=== PATIENT | female | born 1985 | race Asian ===

== ENCOUNTER 2019-07-10 10:51 | Emergency (ER) | payer OTHER, SELFPAY ==
[2019-07-10 10:57] VITALS: BP 121/82; PULSE 67; RESP 15; TEMP 36.8; O2SAT 99; BMI 21.4
--- NOTE | 2019-07-10 11:42 | ED_ITS ---
HPI - Extremity Problem <PHYLICIA Streeter - Last Filed: 07/10/19 20:29> General Chief complaint: Extremity Problem,Nontraumatic Stated complaint: RT ARM NUMB/COMES AND GOES Time Seen by Provider: 07/10/19 11:22 Source: patient Mode of arrival: ambulatory Limitations: no limitations History of Present Illness HPI Narrative: The patient is a 33-year-old female nonsmoker who denies perti nent medical history who presents with a chief complaint of transient right arm pins and needles. She states that has happened in both of her arms on and off since yesterday. She denies any numbness comes states her arm is tingly. She moves her hand, squeezes her hand and eventually goes away. Then it goes away. She states it is worse when she holds a phone in her right hand. She denies any fevers nausea vomiting or diarrhea. She denies any possibility of . She has not taken anything since this started. Related Data Home Medications Medication Instructions Recorded Confirmed No Known Home Medications 07/10/19 07/10/19 Allergies Allergy/AdvReac Type Severity Reaction Status Date / Time No Known Drug Allergies Allergy Verified 07/10/19 10:57 Review of Systems [facility] Last Filed: 07/10/19 20:29> Review of Systems GENERAL: Denies chills, fatigue, malaise, fever, sweats. HEENT: Denies sinus pain, ear pain, sore throat, difficulty swallowing, dizziness. RESPIRATORY: Denies dyspnea, cough, wheezing, hemoptysis, sputum. CARDIOVASCULAR: Denies chest pain, palpitations, orthopnea, edema, GASTROINTESTINAL: Denies nausea, vomiting, abdominal pain, diarrhea, constipation, melena. : Denies dysuria, frequency, incontinence, hematuria, urinary retention. MUSCULOSKELETAL: See HPI SKIN: Denies rash, skin lesions, or other NEUROLOGIC: See HPI PSYCHIATRIC: No concerning psychosocial issues. 12 point review of systems is negative except for those stated above Exam <PHYLICIA Streeter - Last Filed: 07/10/19 20:29> Narrative Exam Narrative: GENERAL: This is a well-nourished, well-developed patient, in mild distress. HEAD: Atraumatic. Normocephalic. No temporal or scalp tenderness. EYES: Pupils equal round and reactive. Extraocular motions intact. No scleral icterus. No injection or drainage. ENT: Nose without bleeding, purulent drainage or septal hematoma. Throat without erythema, tonsillar hypertrophy or exudate. Uvula midline. Airway patent. NECK: Trachea midline. No JVD or lymphadenopathy. Supple, nontender, no men ingeal signs. CARDIOVASCULAR: Regular rate and rhythm without murmurs, gallops, or rubs. RESPIRATORY: Clear to auscultation. Breath sounds equal bilaterally. No wheezes, rales, or rhonchi. GASTROINTESTINAL: Abdomen soft, non-tender, nondistended. No hepato- splenomegaly, or palpable masses. No guarding. EXTREMITIES: Strength is equal upper and lower extremities bilaterally. Sensation of sharp versus dull is intact bilateral upper extremities times 20 evaluations of sharp versus dull. Patient has full range of motion noted bilateral shoulders elbows wrists. Positive radial pulses. Capillary refill less than 2 seconds all fingers. BACK: Nontender without deformity or crepitance. No flank tenderness. NEURO: AOx3. SKIN: No rash or erythema. No rash erythema or ecchymosis noted over bilateral upper arms. Initial Vital Signs Initial Vital Signs: Vital Signs Temperature 98.2 F 07/10/19 10:57 Pulse Rate 67 07/10/19 10:57 Respiratory Rate 15 07/10/19 10:57 Blood Pressure 121/82 07/10/19 10:57 Pulse Oximetry 99 07/10/19 10:57 <Carmelina Aragon DO - Last Filed: 07/11/19 21:16> Initial Vital Signs Initial Vital Signs: Vital Signs Temperature 98.2 F 07/10/19 10:57 Pulse Rate 67 07/10/19 10:57 Respiratory Rate 15 07/10/19 10:57 Blood Pressure 121/82 07/10/19 10:57 Pulse Oximetry 99 07/10/19 10:57 Course <JUNIOR Streeter - Last Filed: 07/10/19 20:29> Orders Ordered: Discontinued Medications Ketorolac Tromethamine (Toradol) 60 mg IM NOW ONE Stop: 07/10/19 11:41 Last Admin: 07/10/19 12:06 Dose: 60 mg Vital Signs - 8 hr 07/10/19 13:21 Pulse Rate 60 Respiratory Rate 16 Blood Pressure [Right Arm] 105/64 Pulse Oximetry 99 <Carmelina Aragon DO - Last Filed: 07/11/19 21:16> Orders Ordered: Discontinued Medications Ketorolac Tromethamine (Toradol) 60 mg IM NOW ONE Stop: 07/10/19 11:41 Last Admin: 07/10/19 12:06 Dose: 60 mg Vital Signs - 8 hr 07/10/19 13:21 Pulse Rate 60 Respiratory Rate 16 Blood Pressure [Right Arm] 105/64 Pulse Oximetry 99 MDM - Extremity (Nontraumatic) <PHYLICIA Streeter - Last Filed: 07/10/19 20:29> Lab Data Result diagrams: 07/10/19 12:20 07/10/19 12:20 Lab Results 07/10/19 07/10/19 07/10/19 Range/Units 12:20 12:20 12:45 WBC 4.7 (4.5-11.0) X10^3/uL RBC 4.20 (4.0-5.2) X10^6/uL Hgb 12.0 (12.0-16.0) g/dL Hct 37.0 (36-46) % MCV 88.2 (80-100) fL MCH 28.5 (26-34) PG MCHC 32.3 (30-36) % RDW 15.3 H (11.6-14.8) % Plt Count 258 (150-400) X10^3/uL Neut % (Auto) 46.8 L (50-75) % Lymph % (Auto) 38.0 (25-40) % Barton % (Auto) 11.9 (3-14) % Eos % (Auto) 1.8 L (2-4) % Baso % (Auto) 1.5 (0-2) % Neut # (Auto) 2200 (4458-0378) /uL Lymph # (Auto) 1800 (8287-5179) /uL Barton # (Auto) 600 (0-900) /uL Eos # (Auto) 100 (0-450) /uL Baso # (Auto) 100 (0-100) /uL Sodium 140 (137-145) mmol/L Potassium 4.1 (3.4-5.1) mmol/L Chloride 104 (98-107) mmol/L Carbon Dioxide 28 (22-32) mmol/L BUN 5 L (7-17) mg/dL Creatinine 0.50 L (0.52-1.04) mg/dL Estimated GFR > 60.0 (>60) mL/min BUN/Creatinine Ratio 10.0 (6-22) Glucose 87 (70-100) mg/dL Calcium 8.9 (8.4-10.2) mg/dL Magnesium 2.0 (1.6-2.3) mg/dL Total Bilirubin 0.7 (0.2-1.3) mg/dL AST 24 (14-36) IU/L ALT 13 (9-52) IU/L Alkaline Phosphatase 46 (38-126) U/L Total Protein 7.3 (6.3-8.2) g/dL Albumin 4.4 (3.5-5.0) g/dL Globulin 2.9 (1.7-4.1) g/dL Albumin/Globulin Ratio 1.5 (1.0-2.8) Urine RBC 30-100/hpf H (0-5/HPF) Urine WBC 0-1/hpf (0-5/HPF) Ur Squamous Epith Cells 0-1 /hpf (0-5/HPF) Urine Bacteria None seen (None) Ur Culture Indicated? Cult not indicated Point of Care Testing Test Results Negative Urine Dip Bedside Urine Glucose Negative Bedside Urine Bilirubin - Negative Bedside Urine Ketone - Negative Urine Specific [place] 1.010 Bedside Urine Occult Blood +++ Bedside Urine pH 8.0 Bedside Urine Protein +/- 15 Bedside Urine Urobilinogen - Negative Bedside Urine Nitrite - Negative Bedside Urine Leukocytes +/- 15 Esterase MDM Narrative Medical decision making narrative: The patient is a 33-year-old female who presents with a chief complaint of transient tingling in both arms, predominately her right arm. Her sensation is intact. This was testing copiously with sharp versus dull. All of her electrolytes are within normal limits. I believe this is likely due to her increased workload lately moving, reaching overhead etc. She was given Toradol in the emergency department I discussed at length conservative measures as well as rest. Could also be a prodrome of shingles. Discussed coming back to the ER for any acute concerns such as concerns of heart attack or stroke. No questions or concerns upon discharge. States understanding of follow-up as well as return precautions. <Carmelina Aragon, DO - Last Filed: 07/11/19 21:16> Lab Data Lab Results 07/10/19 07/10/19 07/10/19 Range/Units 12:20 12:20 12:45 WBC 4.7 (4.5-11.0) X10^3/uL RBC 4.20 (4.0-5.2) X10^6/uL Hgb 12.0 (12.0-16.0) g/dL Hct 37.0 (36-46) % MCV 88.2 (80-100) fL MCH 28.5 (26-34) PG MCHC 32.3 (30-36) % RDW 15.3 H (11.6-14.8) % Plt Count 258 (150-400) X10^3/uL Neut % (Auto) 46.8 L (50-75) % Lymph % (Auto) 38.0 (25-40) % Barton % (Auto) 11.9 (3-14) % Eos % (Auto) 1.8 L (2-4) % Baso % (Auto) 1.5 (0-2) % Neut # (Auto) 2200 (1913-7578) /uL Lymph # (Auto) 1800 (7810-3568) /uL Barton # (Auto) 600 (0-900) /uL Eos # (Auto) 100 (0-450) /uL Baso # (Auto) 100 (0-100) /uL Sodium 140 (137-145) mmol/L Potassium 4.1 (3.4-5.1) mmol/L Chloride 104 (98-107) mmol/L Carbon Dioxide 28 (22-32) mmol/L BUN 5 L (7-17) mg/dL Creatinine 0.50 L (0.52-1.04) mg/dL Estimated GFR > 60.0 (>60) mL/min BUN/Creatinine Ratio 10.0 (6-22) Glucose 87 (70-100) mg/dL Calcium 8.9 (8.4-10.2) mg/dL Magnesium 2.0 (1.6-2.3) mg/dL Total Bilirubin 0.7 (0.2-1.3) mg/dL AST 24 (14-36) IU/L ALT 13 (9-52) IU/L Alkaline Phosphatase 46 (38-126) U/L Total Protein 7.3 (6.3-8.2) g/dL Albumin 4.4 (3.5-5.0) g/dL Globulin 2.9 (1.7-4.1) g/dL Albumin/Globulin Ratio 1.5 (1.0-2.8) Urine RBC 30-100/hpf H (0-5/HPF) Urine WBC 0-1/hpf (0-5/HPF) Ur Squamous Epith Cells 0-1 /hpf (0-5/HPF) Urine Bacteria None seen (None) Ur Culture Indicated? Cult not indicated Point of Care Testing Test Results Negative Urine Dip Bedside Urine Glucose Negative Bedside Urine Bilirubin - Negative Bedside Urine Ketone - Negative Urine Specific [place] 1.010 Bedside Urine Occult Blood +++ Bedside Urine pH 8.0 Bedside Urine Protein +/- 15 Bedside Urine Urobilinogen - Negative Bedside Urine Nitrite - Negative Bedside Urine Leukocytes +/- 15 Esterase Discharge Plan Departure Patient Disposition: Home Clinical Impression: Tingling Discharge Date/Time: 07/10/19 14:05 Interventions: ED Discharge Assessment Last Done: 07/10/19 14:04 Instructions: DI for Numbness/tingling Activity Restrictions/Additional Instructions: I suggest conservative measures at this point including rest [id number] medications as needed and able. Please come back to the emergency department for any acute concerns such as concern of heart attack or stroke. Please follow up with your PCP. In the meantime, our walk-in clinic will do follow-up for emergency department patient. Prescriptions: No Action No Known Home Medications RF: 0 <Carmelina Aragon DO - Last Filed: 07/11/19 21:16> Cosign ED Attending [place] Attestation: I was immediately available in the department for consultation. Documentation has been reviewed. I agree with ass essment and plan.
[2019-07-10] MEDS: KETOROLAC 60 MG/2 ML VIAL IM (12:06)
[2019-07-10 12:31] LABS: Add Manual Diff / Slide Review NO; Basophils Absolute Auto 100 /uL (0-100); Basophils Percent Auto 1.5 % (0-2); Eosinophils Absolute Auto 100 /uL (0-450); Eosinophils Percent Auto 1.8 % (2-4); Lymphocytes Absolute Auto 1800 /uL (1100-4500); Mean Corpuscular HGB Conc 32.3 % (30-36); Mean Corpuscular Hemoglobin 28.5 PG (26-34); Mean Corpuscular Volume 88.2 fL (80-100); Monocytes Absolute Auto 600 /uL (0-900); Monocytes Percent Auto 11.9 % (3-14); Neutrophils Absolute Auto 2200 /uL (1500-7000); Neutrophils Percent Auto 46.8 % (50-75); Platelet Count 258 X10^3/uL (150-400); Red Cell Distribution Width 15.3 % (11.6-14.8); White Blood Cell Count 4.7 X10^3/uL (4.5-11.0)
[2019-07-10 12:42] LABS: Alanine Aminotransferase 13 IU/L (9-52); Albumin 4.4 g/dL (3.5-5.0); Albumin Globulin Ratio 1.5 (1.0-2.8); Alkaline Phosphatase 46 U/L (38-126); Aspartate Aminotransferase 24 IU/L (14-36); Bilirubin Total 0.7 mg/dL (0.2-1.3); Blood Urea Nitrogen 5 mg/dL (7-17); Calcium 8.9 mg/dL (8.4-10.2); Carbon Dioxide 28 mmol/L (22-32); Chloride 104 mmol/L (98-107); Estimated Glomerular Filt Rate > 60.0 mL/min (>60); Globulin 2.9 g/dL (1.7-4.1); Glucose 87 mg/dL (70-100); HEMOLYSIS < 15 (0-50); Potassium 4.1 mmol/L (3.4-5.1); Sodium 140 mmol/L (137-145); Total Protein 7.3 g/dL (6.3-8.2)
[2019-07-10 13:11] LABS: Bacteria Urine None Seen
[2019-07-10 13:21] VITALS: BP 105/64; PULSE 60; RESP 16; O2SAT 99
[2019-07-10 13:22] LABS: Culture Indicated Urine Cult Not Indicated; RBC Urine 30-100/HPF (0-5/HPF); Squamous Epithelial Cell Urine 0-1 /HPF (0-5/HPF); WBC Urine 0-1/HPF (0-5/HPF)
== END 2019-07-10 14:05 | disposition home or self-care (01) ==
PROVIDERS: Emergency Provider Nurse Practitioner Family
DX: R20.2 Paresthesia of skin (principal)
CPT/HCPCS: 36415; 80053; 81003; 81015; 81025; 83735; 85025; 96372; 99282; 99283; J1885